=== PATIENT | male | born 1990 | race Caucasian/White ===

== ENCOUNTER 2024-07-05 21:20 | Emergency (ER) | payer OTHER ==
[~2024-07-05] VITALS: Ht 175.3 cm; Wt 102.0 kg
[2024-07-05] MEDS ORDERED: DOXYCYCLINE HY100 MG PO (21:41)
[2024-07-05] MEDS ORDERED: FLUTICASONE-SA1 EAC3 INH (21:46)
[2024-07-05] MEDS ORDERED: HYDROXYZINE HCL25 MG PO (21:47)
[2024-07-05] MEDS ORDERED: CETIRIZINE HCL10 MG PO (21:48)
[2024-07-05] MEDS ORDERED: TRIAMCINOLONE16.9 ML (21:48)
[2024-07-05] MEDS ORDERED: VITAMIN D325 MC2 PO (21:49)
[2024-07-05] MEDS ORDERED: MELATONIN3 MG PO ×2 (21:49→21:50)
[2024-07-05] MEDS ORDERED: LEVOTHYROXINE50 MC1 PO (21:51)
[2024-07-05] MEDS ORDERED: VENTOLIN HFA18 GM INH (21:51)
[2024-07-05] MEDS ORDERED: MONTELUKAST SOD10 MG PO (21:52)
[2024-07-05] MEDS ORDERED: DIPHTH,PERTUSS(ACELL),TET VAC 0.5 ML SYRINGE IM ONE (22:30)
[2024-07-05 23:03] LABS: RBC 5.27 M/ul (4.3-5.7)
[2024-07-05 23:06] LABS: BASOPHILS 1.1 % (0-2); EOSINOPHILS 4.1 % (0-6); HEMATOCRIT 47.5 % (35.0-50.0); HEMOGLOBIN 16.8 g/dL (12.0-18.0); LYMPHOCYTES 28.3 % (24-44); MCH 31.9 (27-36); MCHC 35.4 g/dl (30-36); MCV 90.1 fl (81-99); MONOCYTES 8.6 % (0-12); NEUTROPHILS 57.9 % (39-80); PLATELET COUNT 374 K/uL (140-440); RDW 13.2 (10.5-15.0)
[2024-07-05 23:17] LABS: ALBUMIN 4.1 g/dL (3.4-5.0); ALBUMIN/GLOBULIN RATIO 1.24 (1.1-2.4); BILIRUBIN, TOTAL 0.4 ng/dL (0.2-1.0); BUN/CREATININE RATIO 18.81 (6.0-28.6); CALCIUM 8.9 mg/dL (8.5-10.1); CREATININE, SERUM 1.01 mg/dL (0.70-1.30); PROTEIN, TOTAL 7.4 g/dL (6.4-8.2)
[2024-07-06 00:08] LABS: ERYTHROCYTE SEDIMENTATION RATE 1
[2024-07-06] MEDS ORDERED: CEPHALEXIN500 M1 PO (00:29)
[2024-07-06] MEDS ORDERED: BACTRIM DS TAB1 EACH PO (00:29)
[2024-07-06 00:45] VITALS: BP 147/89
[2024-07-06] MEDS ORDERED: CEPHALEXIN MONOHYDRATE 500 MG HOME.PACK PO ONE (00:45)
[2024-07-06] MEDS ORDERED: TRIMETHOPRIM/SULFAMETHOXAZOLE 1 EA HOME.PACK PO ONE (00:45)
== END 2024-07-06 00:47 | disposition home or self-care (01) ==
LOC: ED 21:20
PROVIDERS: Emergency Medicine
DX: L03.114 Cellulitis of left upper limb (principal); J45.909 Unspecified asthma, uncomplicated; E03.9 Hypothyroidism, unspecified; Z23 Encounter for immunization; Z79.899 Other long term (current) drug therapy; Z79.890 Hormone replacement therapy
CPT/HCPCS: 36415; 73060; 80053; 85025; 85651; 86140; 90471; 90715; 99284-25; A9270